=== PATIENT | female | born 1955 | race Hispanic/Latino ===

== ENCOUNTER → 2019-09-04 | Day surgery (SDC) | payer BC ==
[~2019-09-04] MED LIST: FENTANYL CITRATE/PF 100MCG/2 ML INJ ONE; LISINOPRIL10 MG PO; MIDAZOLAM HCL 2 MG/2 ML VIAL ONE; NIFEDIPINE ER30 M1 PO; PROPOFOL IV EMULSION 10 MG/ML 50 ML VIAL ONE
--- OUTSIDE RECORDS SUMMARY | 2019-09-04 05:25 | XMS REPORT ---
Author Author [facility] Address Unknown Phone Unavailable Care Team Providers Care Fisheries Officer Name Role Phone Unavailable Unavailable Problems This patient has no known problems. Allergies, Adverse Reactions, Alerts This patient has no known allergies or adverse reactions. Medications This patient has no known medications. Results Test Description Test Time Test Comments Text Results Atomic Results Result Comments SCR MAMM BILATERAL HEBER CAD DIGITAL 2019-08-11 09:32:41 - SCR MAMM BILATERAL HEBER CAD DIGITALBILATERAL DIGITAL SCREENING MAMMOGRAM 3D/2D WITH CAD: 08/09/2019CLINICAL: Asymptomatic. Digital breast tomosynthesis was performed in addition to routine CC and MLO views. Current mammographic images were evaluated by either a SecureWave M-Vu or a ehealthtracker ImageChecker CAD (computer aided detection system). Comparison is made to exams dated 08/07/2018 mammogram, 2016 mammogram, and 07/30/2016 mammogram - [facility]. The tissue of both breasts is heterogeneously dense. This may lower the sensitivity of mammography. There is a biopsy clip in the left breast. No suspicious mass, architectural distortion, malignant type calcification, or lymph node abnormality detected. Breast architecture is stable compared to prior exams.IMPRESSION: NEGATIVEThere is no mammographic evidence of malignancy. Resume annual screening mammography in one year. Taniya mathew/temi:08/11/2019 09:32:41 Attending Technologist: Agatha ROMANO, [facility]FW[facility] Technologist: Mikki ROMANO, [facility] sent: BIRADS 1-2 Normal Mammogram BI-RADS: 1 Negative
[2019-09-04 10:25] VITALS: BP 114/82
== END | disposition home or self-care (01) ==
LOC: OR 05:15
PROVIDERS: ATTEND Internal Medicine Gastroenterology
DX: Z12.11 Encounter for screening for malignant neoplasm of colon (principal); D12.3 Benign neoplasm of transverse colon; K64.8 Other hemorrhoids; Z90.49 Acquired absence of other specified parts of digestive tract; I10 Essential (primary) hypertension; Z01.810 Encounter for preprocedural cardiovascular examination
CPT/HCPCS: 45384; 93005; J2250; J2704; J3010; 45378